=== PATIENT | male | born 1945 | race Caucasian/White ===

== ENCOUNTER → 2016-09-13 | Outpatient (CLI) | payer OTHER, BC ==
[~2016-09-13] MED LIST: ALEVE220 MG PO; ASA5UEC PO; ATORVASTATIN CA40 MG PO; CENTRUM SILVER1 EAC4 PO; CYMBALTA60 MG PO; NITROGLYCERIN0.4 MG SUBLING; TOPROL XL25 MG PO; VITAMINC500 PO; XANAX 0.25 MG0.25 MG PO
[2016-09-13 14:46] LABS: ABSOLUTE NEUTROPHILS 5.6 thou/uL (1.4-8.2); EOSINOPHILS 2.1 % (0.0-3.0); HEMATOCRIT 46.4 % (42.0-52.0); HEMOGLOBIN 16.2 gm/dL (14.0-18.0); LYMPHOCYTES 19.1 % (24.0-44.0); MCH 31.6 pg (26.0-34.0); MCV 90.3 fL (80.0-100.0); MONOCYTES 7.8 % (1.0-8.0); PLATELET COUNT 186 thou/uL (150-400); RBC 5.14 mil/uL (4.50-6.00); RDW 13.7 % (10.5-14.5)
[2016-09-13 14:51] LABS: MANUAL DIFF NO; POTASSIUM 4.2 mmol/L (3.5-5.1)
[2016-09-13 14:52] LABS: CALCIUM 9.4 mg/dL (8.5-10.1); CREATININE 0.9 mg/dL (0.6-1.3)
[2016-09-13 15:05] LABS: TOTAL BILIRUBIN 0.6 mg/dL (<0.1-1.0)
[2016-09-13 15:06] LABS: ALBUMIN 3.8 g/dL (3.4-5.0); TOTAL PROTEIN 7.3 g/dL (6.4-8.2)
[2016-09-13 15:25] LABS: TSH 1.45 uIU/mL (0.358-3.740)
== END ==
LOC: MRI 09:50
PROVIDERS: Psychiatry & Neurology Neuromuscular Medicine
DX: R51 Headache (principal); J34.1 Cyst and mucocele of nose and nasal sinus; E04.1 Nontoxic single thyroid nodule

== ENCOUNTER → 2017-02-28 | Outpatient (CLI) | payer OTHER, BC | LOC: CAT 08:15 | DX: J43.9 Emphysema, unspecified (principal); R91.1 Solitary pulmonary nodule ==

== ENCOUNTER → 2018-04-24 | Outpatient (CLI) | payer OTHER, BC | LOC: CAT 10:29 | DX: J43.2 Centrilobular emphysema (principal); J98.11 Atelectasis; I70.0 Atherosclerosis of aorta; I25.10 Atherosclerotic heart disease of native coronary artery without angina pectoris; K76.0 Fatty (change of) liver, not elsewhere classified; R91.8 Other nonspecific abnormal finding of lung field ==

== ENCOUNTER → 2019-07-29 | Outpatient (CLI) | payer OTHER | LOC: SJCVC 10:48 | DX: R94.31 Abnormal electrocardiogram [ECG] [EKG] (principal); I45.10 Unspecified right bundle-branch block; I25.10 Atherosclerotic heart disease of native coronary artery without angina pectoris; E78.00 Pure hypercholesterolemia, unspecified; I10 Essential (primary) hypertension; I65.23 Occlusion and stenosis of bilateral carotid arteries; Z95.5 Presence of coronary angioplasty implant and graft; Z79.899 Other long term (current) drug therapy; Z87.891 Personal history of nicotine dependence ==

== ENCOUNTER → 2020-05-19 | Outpatient (CLI) | payer OTHER | LOC: RAD 12:15 | PROVIDERS: ATTEND Pediatrics | DX: J44.9 Chronic obstructive pulmonary disease, unspecified (principal); R91.8 Other nonspecific abnormal finding of lung field ==

== ENCOUNTER → 2020-05-31 | Outpatient (CLI) | payer OTHER | LOC: CAT 10:29 | PROVIDERS: ATTEND Pediatrics | DX: Z12.2 Encounter for screening for malignant neoplasm of respiratory organs (principal); M25.78 Osteophyte, vertebrae; I70.0 Atherosclerosis of aorta; Z87.891 Personal history of nicotine dependence; J98.4 Other disorders of lung ==

== ENCOUNTER → 2020-06-09 | Outpatient (CLI) | payer OTHER | LOC: PET 11:01 | PROVIDERS: ATTEND Pediatrics | DX: R91.1 Solitary pulmonary nodule (principal); J98.4 Other disorders of lung ==

== ENCOUNTER → 2020-06-29 | Outpatient (CLI) | payer OTHER | LOC: SJCVC 12:18 | PROVIDERS: ATTEND Internal Medicine Cardiovascular Disease | DX: I45.10 Unspecified right bundle-branch block (principal); R94.31 Abnormal electrocardiogram [ECG] [EKG]; I11.9 Hypertensive heart disease without heart failure; I48.0 Paroxysmal atrial fibrillation; I25.10 Atherosclerotic heart disease of native coronary artery without angina pectoris; E78.5 Hyperlipidemia, unspecified; I77.9 Disorder of arteries and arterioles, unspecified; Z79.891 Long term (current) use of opiate analgesic; Z79.899 Other long term (current) drug therapy; Z87.891 Personal history of nicotine dependence ==

== ENCOUNTER → 2020-08-03 | Outpatient (CLI) | payer OTHER | LOC: SJCVCIMAG 06:41 | PROVIDERS: ATTEND Internal Medicine Cardiovascular Disease | DX: I35.8 Other nonrheumatic aortic valve disorders (principal); R00.0 Tachycardia, unspecified; R94.31 Abnormal electrocardiogram [ECG] [EKG]; I44.2 Atrioventricular block, complete; I48.91 Unspecified atrial fibrillation; I25.10 Atherosclerotic heart disease of native coronary artery without angina pectoris; I10 Essential (primary) hypertension; E78.00 Pure hypercholesterolemia, unspecified; I77.9 Disorder of arteries and arterioles, unspecified; J44.9 Chronic obstructive pulmonary disease, unspecified; E78.5 Hyperlipidemia, unspecified; G47.33 Obstructive sleep apnea (adult) (pediatric); Z95.5 Presence of coronary angioplasty implant and graft; Z79.82 Long term (current) use of aspirin; Z79.899 Other long term (current) drug therapy; Z87.891 Personal history of nicotine dependence; Z82.49 Family history of ischemic heart disease and other diseases of the circulatory system ==

== ENCOUNTER → 2020-11-18 | Outpatient (CLI) | payer OTHER | LOC: CAT 09:44 | PROVIDERS: ATTEND Pediatrics | DX: R91.1 Solitary pulmonary nodule (principal); K76.0 Fatty (change of) liver, not elsewhere classified ==

== ENCOUNTER → 2021-02-10 | Outpatient (CLI) | payer OTHER | LOC: SJCVC 13:59 | PROVIDERS: ATTEND Internal Medicine Cardiovascular Disease | DX: R94.31 Abnormal electrocardiogram [ECG] [EKG] (principal); I45.2 Bifascicular block; I48.0 Paroxysmal atrial fibrillation; I25.10 Atherosclerotic heart disease of native coronary artery without angina pectoris; I10 Essential (primary) hypertension; E78.5 Hyperlipidemia, unspecified; I77.9 Disorder of arteries and arterioles, unspecified; R07.89 Other chest pain; R06.00 Dyspnea, unspecified; F41.9 Anxiety disorder, unspecified; J44.9 Chronic obstructive pulmonary disease, unspecified; E78.00 Pure hypercholesterolemia, unspecified; G47.33 Obstructive sleep apnea (adult) (pediatric); Z79.82 Long term (current) use of aspirin; Z79.899 Other long term (current) drug therapy; Z72.89 Other problems related to lifestyle; Z87.891 Personal history of nicotine dependence ==

== ENCOUNTER → 2021-03-10 | Outpatient (CLI) | payer OTHER | LOC: SJCVCIMAG 08:07 | PROVIDERS: ATTEND Internal Medicine Cardiovascular Disease | DX: I70.203 Unspecified atherosclerosis of native arteries of extremities, bilateral legs (principal); I10 Essential (primary) hypertension; I48.0 Paroxysmal atrial fibrillation; I25.10 Atherosclerotic heart disease of native coronary artery without angina pectoris; E78.5 Hyperlipidemia, unspecified; J44.9 Chronic obstructive pulmonary disease, unspecified; F41.9 Anxiety disorder, unspecified; F32.9 Major depressive disorder, single episode, unspecified; E78.00 Pure hypercholesterolemia, unspecified; G47.33 Obstructive sleep apnea (adult) (pediatric); Z82.49 Family history of ischemic heart disease and other diseases of the circulatory system; Z79.82 Long term (current) use of aspirin; Z79.899 Other long term (current) drug therapy; Z87.891 Personal history of nicotine dependence ==

== ENCOUNTER → 2021-03-16 | Outpatient (CLI) | payer OTHER ==
[~2021-03-16] MED LIST changes: +BENICAR HCT 401 EACH PO; +FLOMAX0.4 MG PO; +XARELTO20 MG PO
== END ==
LOC: SJCVC 09:50
PROVIDERS: ATTEND Nuclear Medicine Nuclear Cardiology
DX: I73.9 Peripheral vascular disease, unspecified (principal); I25.10 Atherosclerotic heart disease of native coronary artery without angina pectoris; I77.9 Disorder of arteries and arterioles, unspecified; I48.91 Unspecified atrial fibrillation; I10 Essential (primary) hypertension; J44.9 Chronic obstructive pulmonary disease, unspecified; E78.5 Hyperlipidemia, unspecified; E78.00 Pure hypercholesterolemia, unspecified; F32.9 Major depressive disorder, single episode, unspecified; Z87.891 Personal history of nicotine dependence; Z72.89 Other problems related to lifestyle; Z79.82 Long term (current) use of aspirin; Z79.899 Other long term (current) drug therapy; Z95.5 Presence of coronary angioplasty implant and graft

== ENCOUNTER → 2021-03-28 | Outpatient (CLI) | payer OTHER ==
[~2021-03-28] VITALS: Ht 172.7 cm; Wt 111.1 kg
[2021-03-28 09:14] VITALS: BP 130/63
[2021-03-28 09:21] LABS: HEMATOCRIT 30.3 % (42.0-52.0); HEMOGLOBIN 9.9 gm/dL (14.0-18.0); MCH 25.9 pg (26.0-34.0); MCHC 32.6 g/dL (28.0-37.0); MCV 79.4 fL (80.0-100.0); RBC 3.82 mil/uL (4.50-6.00); WBC 5.4 thou/uL (4.0-11.0)
[2021-03-28 09:53] LABS: CALCIUM 8.8 mg/dL (8.5-10.1); POTASSIUM 4.5 mmol/L (3.5-5.1)
== END | disposition home or self-care (01) ==
LOC: CATH 06:58
PROVIDERS: ATTEND Nuclear Medicine Nuclear Cardiology
DX: I70.213 Atherosclerosis of native arteries of extremities with intermittent claudication, bilateral legs (principal); I70.1 Atherosclerosis of renal artery; M79.604 Pain in right leg; M79.605 Pain in left leg; I10 Essential (primary) hypertension; I25.10 Atherosclerotic heart disease of native coronary artery without angina pectoris; I48.91 Unspecified atrial fibrillation; J44.9 Chronic obstructive pulmonary disease, unspecified; I25.2 Old myocardial infarction; F32.9 Major depressive disorder, single episode, unspecified; F41.9 Anxiety disorder, unspecified; Z98.890 Other specified postprocedural states; Z79.899 Other long term (current) drug therapy; Z79.01 Long term (current) use of anticoagulants; Z87.891 Personal history of nicotine dependence; Z79.82 Long term (current) use of aspirin

== ENCOUNTER → 2021-04-06 | Outpatient (CLI) | payer OTHER | LOC: SJCVCIMAG 10:37 | PROVIDERS: ATTEND Internal Medicine Cardiovascular Disease | DX: I45.10 Unspecified right bundle-branch block (principal); I25.10 Atherosclerotic heart disease of native coronary artery without angina pectoris; I48.91 Unspecified atrial fibrillation; E78.5 Hyperlipidemia, unspecified; I73.9 Peripheral vascular disease, unspecified; I77.9 Disorder of arteries and arterioles, unspecified; J44.9 Chronic obstructive pulmonary disease, unspecified; F41.9 Anxiety disorder, unspecified; F32.9 Major depressive disorder, single episode, unspecified; E78.00 Pure hypercholesterolemia, unspecified; G47.33 Obstructive sleep apnea (adult) (pediatric); Z82.49 Family history of ischemic heart disease and other diseases of the circulatory system; Z79.82 Long term (current) use of aspirin; Z79.899 Other long term (current) drug therapy; Z72.89 Other problems related to lifestyle; Z87.891 Personal history of nicotine dependence ==

== ENCOUNTER → 2021-04-08 | Outpatient (CLI) | payer OTHER ==
[~2021-04-08] MED LIST changes: +VENTOLIN HFA 1818 GM INH; +ZANAFLEX4 M1 PO
== END ==
LOC: RAD 10:56
PROVIDERS: ATTEND Nurse Practitioner
DX: M47.26 Other spondylosis with radiculopathy, lumbar region (principal); M43.16 Spondylolisthesis, lumbar region; M47.817 Spondylosis without myelopathy or radiculopathy, lumbosacral region

== ENCOUNTER → 2021-04-15 | Outpatient (CLI) | payer OTHER ==
[~2021-04-15] MED LIST changes: -VENTOLIN HFA 1818 GM INH; -ZANAFLEX4 M1 PO
== END ==
LOC: MRI 09:36
PROVIDERS: ATTEND Nurse Practitioner
DX: M47.26 Other spondylosis with radiculopathy, lumbar region (principal); M51.16 Intervertebral disc disorders with radiculopathy, lumbar region; M43.16 Spondylolisthesis, lumbar region; M48.061 Spinal stenosis, lumbar region without neurogenic claudication; M47.817 Spondylosis without myelopathy or radiculopathy, lumbosacral region; M48.07 Spinal stenosis, lumbosacral region

== ENCOUNTER → 2021-04-20 | Outpatient (CLI) | payer OTHER ==
[~2021-04-20] VITALS: Ht 177.8 cm; Wt 108.9 kg
[~2021-04-20] MED LIST changes: +VENTOLIN HFA 1818 GM INH; +ZANAFLEX4 M1 PO
--- NOTE | ~2021-04-20 | HPC ---
[address] [address] PAIN MANAGEMENT CONSULTATION Name: RAN GLOVER Pablo Room #: REG QUAN Shira#: [id number] Admission: 04/20/21 Attend Phys: Fahad Salazar DO Discharge: Date of : 49 Report #: [id number] THIS REPORT FOR: cc: Dalia Oneil DNP, Mary E. DNP Johnson, James E. DO ~ cc: YUMIKO Encinas DATE OF SERVICE: 04/20/2021 CHIEF COMPLAINT: Low back pain, bilateral lower extremity pain with paresthesias. HISTORY OF PRESENT ILLNESS: As you know, the patient is a very pleasant 76-year-old male reporting a longstanding history of axial back pain, lower extremity pain with paresthesias. The patient was seen by pain management in 2013, undergoing lumbar epidural injections under fluoroscopic guidance to address lumbar radicular symptoms. He states his pain was well controlled until 08/2020 where his pain intensified quite quickly. He is now indicating pain level up to 8/10. He has trialed chiropractic manipulation without benefit. He has utilized [id number] medications, rest, relaxation without significant pain improvement. He continued to experience symptoms, great enough that he discussed his case with his primary care team, who sent the patient for MRI imaging, the findings were obtained, and the patient was referred on to our clinic to discuss interventional treatment options and surgical options. The patient reports today pain is continuous. He describes the pain as more of a shooting, cramping, aching, numbness and tingling. He places current pain score at 8/10, daily average at 8/10. Worst pain has been as 10/10. The patient states that virtually every activity exacerbates symptoms, the only thing that has improved pain to date has been medications. He has been referred to our service to discuss interventional treatments and surgical options to address MRI findings of lumbar radiculopathy. PAST MEDICAL HISTORY: Hepatitis C, anxiety disorder, dyslipidemia, hypertension, COPD, obstructive sleep apnea, atrial fibrillation, coronary artery disease, peripheral vascular disease, carpal tunnel syndrome, chronic edema, benign prostatic hypertrophy of the prostate. SOCIAL HISTORY: The patient is a reformed smoker, smoking 2 packs a day for 50 years or a total of 100 pack years. He admits to 1-2 alcohol beverages per day. He is retired, retired years ago. He is not receiving workmen's compensation nor is he trying to obtain disability benefits, not in litigation in regards to pain. He is unaccompanied at today's visit. REVIEW OF SYSTEMS: Positive for low back pain, bilateral lower extremity pain with paresthesias, shortness of breath with walking, lying flat, asthma, [address] [address] PAIN MANAGEMENT CONSULTATION Name: RAN GLOVER Room #: REG CLRemberto Silva#: [id number] Admission: 04/20/21 Attend Phys: Fahad Salazar DO Discharge: Date of : 49 Report #: [id number] wheezing, COPD, and hepatitis. All other review of systems negative per 12-point review of systems other than those listed in history of present illness. Pain impact score 28 of 70, moderate interference of daily activities secondary to pain. ALLERGIES: No known drug allergies. CURRENT MEDICATIONS: Duloxetine 60 mg once a day, alprazolam 0.25 mg once a day, atorvastatin 40 mg once a day, nitroglycerin 0.4 mg p.r.n., multivitamin 1 tab per day, ascorbic acid 500 mg 2 tabs once a day, olmesartan/hydrochlorothiazide 40/12.5 mg once a day, Xarelto 20 mg once a day, tamsulosin 0.4 mg once a day, albuterol 2 puffs q. 4 hours p.r.n., tizanidine 4 mg p.r.n. IMAGING: MRI lumbar spine obtained 04/15/2021 shows severe L4-L5 central canal stenosis with grade 1 anterolisthesis, severe facet arthropathy, severe ligamentum flavum hypertrophy and severe lateral recess stenosis with a deformation of the L5 nerve roots bilaterally. PQRS: The patient has known arthritic changes of lumbar spine, bilateral hips and knees. No rheumatoid arthritis. He is placing current pain score at 8/10. He is not a fall risk, but has had a fall in last 3 months, tripping over objects at home. These have been corrected. He is on Xarelto as a blood thinner. He is treated for hypertension. He is not on any opioids. He has a moderate to severe opioid addiction potential based on assessment tool. Pain impact is 28 of 70, moderate interference of daily activities secondary to pain. PHYSICAL EXAMINATION: VITAL SIGNS: Blood pressure 140/75, pulse 69, respiratory rate 20, unlabored. The patient is 97% on room air. Height 5 feet 10 inches tall, weight 240 pounds, BMI calculated 34.4. GENERAL: Well-developed, well-nourished, well-hydrated 76-year-old male, appears older than stated age, placing current pain score at 8/10. HEENT: Normocephalic, atraumatic. Pupils equal, round, and responsive to light. Extraocular muscles are intact. Speech fluent. The patient deemed a good historian. He is wearing a mask in compliance with COVID-19 regulations. LUNGS: Decreased breath sounds bilaterally, prolonged expiratory phase. No wheezing, rhonchi, or rales. CARDIOVASCULAR: Regular. No murmurs. ABDOMEN: Soft, nontender. EXTREMITIES: Show no clubbing, no cyanosis, no edema. MUSCULOSKELETAL: Lower extremity strength is symmetrical 5/5, intact to light touch from L1 through S2 dermatomes. Seated straight leg raising negative. Supine straight leg raising positive. Fabere's test is negative. [facility] [address] [place] [address] PAIN MANAGEMENT CONSULTATION Name: BELENRAN R Room #: [facility]#: [id number] Admission: 04/20/21 Attend Phys: Fahad Salazar DO Discharge: Date of : 49 Report #: [id number] Gaenslen's positive for axial low back pain. Ankle clonus negative. Gait is normal. Stance is normal. The patient does have difficulty with toe walk and heel walk due to balance. ASSESSMENT: 1. Symptomatic lumbar radiculopathy. 2. Severe central canal stenosis of lumbar spine. 3. 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 4. Severe facet arthropathy of lumbar spine. 5. Displacement of lumbar intervertebral disk with radiculopathy. 6. Lumbosacral spondylosis with radiculopathy. 7. Lumbar degeneration. PLAN: 1. Based on today's physical exam and history the patient has provided, the description the patient uses in regards to pain as well as location of symptoms, it would appear that the patient is suffering from lumbar radiculopathy. Findings of the MRI shows severe central canal stenosis and lateral recess stenosis with deformation of the L5 nerve roots bilaterally, which is consistent with the patient's symptoms. We reviewed the patient's MRI today. We have correlated the findings of the physical exam to his current MRI and then discussed the treatment options. Following was discussed with the patient today: 1. We discussed physical therapy, stretching exercises, and core strengthening as a treatment approach. We discussed medication management, adding a neuropathic medication to his list of medications and increasing his Cymbalta. We discussed lumbar epidural injection under fluoroscopic guidance for which the patient was referred to our clinic. We also discussed surgical options to address his central canal stenosis. After reviewing risks and benefits of all proposed treatment options, the patient chose to move forward with a lumbar epidural injection under fluoroscopic guidance. 2. The patient was advised due to third alliance party payer restrictions, authorization have to be obtained before the patient could undergo a lumbar epidural injection. We will begin those processes immediately. I am hopeful to have those authorizations completed by the next couple of days. Once we have this authorization, we will contact the patient to come off his Xarelto. 3. The patient will need to come off his Xarelto for 3 days prior to the requested epidural injection. He must be off this medication to safely perform neural axial blockade based on ROSITA guidelines. If necessary, needs to obtain authorization to come off the Xarelto. The patient has been off the Xarelto in the past for carpal tunnel treatment without issues. If clearance is necessary, the patient will need to contact the prescribing physician. Otherwise, we will have him come off the medication in preparation for the epidural injection requested. 4. I recommend the patient increase his duloxetine from 60 mg once a day to 60 mg twice a day. This potentially will help with his neuropathic symptoms. [facility] [address] [place] [address] PAIN MANAGEMENT CONSULTATION Name: RAN GLOVER Room #: REG CLRemberto Silva#: [id number] Admission: 04/20/21 Attend Phys: Fahad Salazar DO Discharge: Date of : 49 Report #: [id number] Duloxetine has a much greater norepinephrine reuptake inhibition at the doses of 90 and 120 mg. We will double his dose today and watch for any side effects. 5. We will see the patient back in followup visit once he has discontinued the Xarelto for 3 days and has received the approval to undergo the procedure. 6. We wish to thank nurse practitioner, Dalia Oneil, for the opportunity to see this patient in consultation. We will keep you apprised of response to treatment as we address severe lumbar central canal stenosis and lateral recess stenosis with subsequent development of lumbar radiculopathy. Again, we wish to thank you for the opportunity to see the patient in consultation. By: [id number] Fahad Salazar DO /nt
[2021-04-20 10:50] VITALS: BP 140/75
== END ==
LOC: PAIN 07:16
PROVIDERS: ATTEND Anesthesiology Pain Medicine
DX: M47.816 Spondylosis without myelopathy or radiculopathy, lumbar region (principal); M51.16 Intervertebral disc disorders with radiculopathy, lumbar region; M48.061 Spinal stenosis, lumbar region without neurogenic claudication; M47.817 Spondylosis without myelopathy or radiculopathy, lumbosacral region; M79.661 Pain in right lower leg; M79.662 Pain in left lower leg

== ENCOUNTER → 2021-04-26 | Outpatient (CLI) | payer OTHER ==
[~2021-04-26] VITALS: Ht 177.8 cm; Wt 113.9 kg
[2021-04-26 10:10] VITALS: BP 136/81
--- NOTE | 2021-04-26 10:19 | NUR ---
Pain Clinic Assessment: 1. History of Osteoarthritis: BACK History of Rheumatoid Arthritis: Not Applicable 2. Height: 5 ft. 10 in. 177.8 cm. Weight: 251.0 lb. oz. 113.853 kg. Patient's BMI: 36.0 3. Vital Signs: BP: 136/81 Pulse: 70 Resp: 18 Temp: 02 Sat: 97 ECG Mon: 4. Pain Intensity: 8 5. Fall Risk: Dizziness: N Needs help standing or walking: N Fallen in the last 3 months: N Fall risk comments: 6. Patient on Blood Thinner: XERALTO 7. History of Hypertension: Y 8. Opioid Therapy greater than 6 weeks: N Opiate Contract Signed: 9. Risk Assessment Tool Provided: MOD 10. Functional Assessment Tool: 11. Recreational Drug Use: Never Drug Type: Tobacco Use: Former Smoker Tobacco Type: Amount or Packs/day: How Many Years: Alcohol Use: Yes Frequency: Special Occasions Quant: 1
--- NOTE | 2021-04-27 08:39 | HPC ---
[address] [address] PAIN MANAGEMENT CONSULTATION Name: RAN GLOVER Room #: REG QUAN Shira#: [id number] Admission: 04/26/21 Attend Phys: Fahad Salazar DO Discharge: Date of : 49 Report #: [id number] THIS REPORT FOR: cc: Dalia Oneil DNP, Mary E. DNP Johnson, James E. DO ~ cc: YUMIKO Encinas DATE OF SERVICE: 04/26/2021 REFERRING PHYSICIAN: Nurse practitioner, Dalia Oneil CHIEF COMPLAINT: Low back pain, bilateral lower extremity pain with paresthesias. HISTORY OF PRESENT ILLNESS: As you know, the patient is a very pleasant 76-year-old male with longstanding history of axial back pain, lower extremity pain with paresthesias. He has been seen by pain management in the past, undergoing epidural injections with benefit. He was referred to our clinic on 04/20/2021 for low back pain, bilateral lower extremity pain. It did not improve with rest, relaxation and [id number] medications. He underwent MRI of lumbar spine, which showed changes that prompted a referral to our clinic. We saw the patient in consultation on 04/20/2021 where he was diagnosed with lumbar radiculopathy secondary to severe central canal and lateral recess stenosis. He wish to establish today's appointment to undergo lumbar epidural injection as third republic[employer] payer restrictions require that authorization be obtained. He has received that authorization, returning today in followup visit to undergo the first in a series of epidural injections. ALLERGIES: No known drug allergies. CURRENT MEDICATIONS: See chart. SOCIAL HISTORY: The patient denies current tobacco use. He is a reformed smoker with [id number] of smoking history. He admits to 2 alcohol beverages per day. He is accompanied by a family member present in room today. IMAGING: No new imaging available. PQRS: The patient has known arthritic changes of lumbar spine, bilateral hips and knees. No rheumatoid arthritis. He is placing pain intensity to 8/10. He is not a fall risk, has not had a fall in last 3 months. He is on blood thinner in the form of Xarelto, but discontinued the medication 3 days ago in preparation for the procedure. He is treated for hypertension. He is not on opioids, but does have a moderate to severe opioid addiction potential based on assessment tool. Pain impact is 28/70, moderate interference with daily activities secondary to pain. [address] [address] PAIN MANAGEMENT CONSULTATION Name: GLOVERRAN R [facility] [id number] Admission: 04/26/21 Attend Phys: Fahad Salazar DO Discharge: Date of : 49 Report #: [id number] PHYSICAL EXAMINATION: VITAL SIGNS: Blood pressure 136/81, pulse 70, respiratory rate 18 and unlabored. The patient is 97% on room air. Height 5 feet 10 inches tall, weight 251 pounds, BMI calculated 36.0. GENERAL: Well-developed, well-nourished, well-hydrated 76-year-old male. He is placing current pain score at 8/10. HEENT: Normocephalic, atraumatic. Pupils equal, round and responsive. EXTREMITIES: Show no clubbing, no cyanosis, no edema. MUSCULOSKELETAL: Lower extremity strength remains symmetrical again today. Muscle bulk and tone is equal and symmetrical. Seated straight leg raising negative. Supine straight leg raising is positive. Fabere's test negative. Modified Gaenslen's positive for axial low back pain. ASSESSMENT: 1. Symptomatic lumbar radiculopathy. 2. Severe central canal stenosis of lumbar spine. 3. 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 4. Severe facet arthropathy of lumbar spine. 5. Displacement of lumbar intervertebral disk with radiculopathy. 6. Lumbosacral spondylosis with radiculopathy. 7. Spondylolisthesis of L4 on L5. 8. Lumbar degeneration. PLAN: 1. The patient returns today in followup visit, having received authorization to undergo the first in a series of lumbar epidural injections. The patient has been advised of the risks and the benefits of a lumbar epidural injection. These risks include but are not necessarily limited to bleeding, bruising, infection, worsening pain, no relief of pain, also risk of temporary or permanent muscle weakness, temporary or permanent nerve damage, possible paralysis, post-dural puncture headache and . The patient states he understood and wished to proceed. 2. No medication changes made at today's visit. The patient will continue current medical therapy as prior prescribed. 3. The patient will restart his Xarelto today. We recommend no earlier than 2:00 in the afternoon and continue his Xarelto as directed. 4. We will see the patient back in followup visit for the next in the series of lumbar epidural injections. We have made the patient a tentative appointment for 30 days from today. PROCEDURE NOTE: DESCRIPTION OF PROCEDURE: L5-S1 interlaminar epidural steroid injection under fluoroscopic guidance. [address] [address] PAIN MANAGEMENT CONSULTATION Name: RAN GLOVER [facility] [id number] Admission: 04/26/21 Attend Phys: Fahad TenaBala Salazar DO Discharge: Date of : 47 Report #: [id number] This is the first procedure of the first series that the patient is undergoing. After obtaining written consent, the patient was taken back to the fluoroscopy suite, placed in a prone position with pillow under the abdomen to decrease lumbar lordosis. The skin overlying the lumbosacral area was then prepped and draped in aseptic fashion. The L5-S1 vertebral interspace was then identified by AP fluoroscopy. The skin and subcutaneous tissue overlying the target site of injection was anesthetized with 3 mL 1% lidocaine. A 20-gauge 3-1/2 inch Tuohy needle was then advanced under fluoroscopic guidance towards the epidural space using a parasagittal approach. The epidural space was identified using loss of resistance to air technique. After negative aspiration for heme or cerebrospinal fluid, a total of 1 mL of Omnipaque was injected. A lumbar epidurogram was confirmed using both AP and lateral fluoroscopy. After negative aspiration for heme or cerebrospinal fluid, 5 mL of a solution containing 2 mL 40 mg per mL 80 mg total triamcinolone along with 3 mL of lidocaine 1% was injected in increments. Contrast spread was noted in posterior epidural space. The needle was then retracted approximately half way and needle tract flushed with 1 mL of 1% lidocaine. Needle was then removed. There were no apparent sensory or motor deficits in the lower extremity following the procedure. A sterile bandage was placed over the injection site. The heart rate, pulse, oximetry and blood pressure were continuously monitored after the procedure. There were no apparent complications. The patient tolerated the procedure well and was carefully escorted to the recovery room in stable condition. There were no apparent complications. After meeting discharge criteria, the patient was then discharged home. <ELECTRONICALLY SIGNED> By: Fahad Salazar DO 04/27/21 [id number] Fahad Salazar DO /nt
== END | disposition home or self-care (01) ==
LOC: PAIN 07:21
PROVIDERS: ATTEND Anesthesiology Pain Medicine
DX: M51.16 Intervertebral disc disorders with radiculopathy, lumbar region (principal); M48.061 Spinal stenosis, lumbar region without neurogenic claudication; M47.27 Other spondylosis with radiculopathy, lumbosacral region; M47.26 Other spondylosis with radiculopathy, lumbar region; M43.16 Spondylolisthesis, lumbar region; G89.29 Other chronic pain; I10 Essential (primary) hypertension; M19.90 Unspecified osteoarthritis, unspecified site; Z98.890 Other specified postprocedural states; Z79.899 Other long term (current) drug therapy

== ENCOUNTER → 2021-05-24 | Outpatient (CLI) | payer OTHER ==
[~2021-05-24] VITALS: Ht 177.8 cm; Wt 113.3 kg
[2021-05-24 10:14] VITALS: BP 144/85
--- NOTE | 2021-05-24 10:20 | NUR ---
Pain Clinic Assessment: 1. History of Osteoarthritis: BACK History of Rheumatoid Arthritis: Not Applicable 2. Height: 5 ft. 10 in. 177.8 cm. Weight: 249.8 lb. oz. 113.309 kg. Patient's BMI: 35.8 3. Vital Signs: BP: 144/85 Pulse: 68 Resp: 16 Temp: 02 Sat: 98 ECG Mon: 4. Pain Intensity: 7 5. Fall Risk: Dizziness: N Needs help standing or walking: N Fallen in the last 3 months: N Fall risk comments: 6. Patient on Blood Thinner: XERALTO 7. History of Hypertension: Y 8. Opioid Therapy greater than 6 weeks: N Opiate Contract Signed: 9. Risk Assessment Tool Provided: MOD 10. Functional Assessment Tool: 11. Recreational Drug Use: Never Drug Type: Tobacco Use: Former Smoker Tobacco Type: Amount or Packs/day: How Many Years: Alcohol Use: Yes Frequency: Special Occasions Quant: 4-5
--- NOTE | 2021-05-25 08:11 | HPC ---
[facility] [place] [address] PAIN MANAGEMENT CONSULTATION Name: RAN GLOVER Room #: REG QUAN Gavino.#: [id number] Admission: 05/24/21 Attend Phys: Fahad Salazar DO Discharge: Date of : 49 Report #: [id number] THIS REPORT FOR: cc: Dalia Oneil DNP, Mary E. DNP Johnson, James E. DO ~ cc: YUMIKO Encinas DATE OF SERVICE: 05/24/2021 REFERRING PHYSICIAN: Dalia Oneil NP CHIEF COMPLAINT: Low back pain, bilateral lower extremity pain with paresthesias. HISTORY OF PRESENT ILLNESS: As you know, the patient is a very pleasant 76-year-old male with longstanding history of axial back pain and lower extremity pain with paresthesias. He was seen in pain management in the past, underwent epidural injections with benefit. He was referred to our clinic on 04/20/2021 for low back pain, bilateral lower extremity symptoms. Symptoms did not improve with conservative treatment options. He underwent a lumbar epidural injection under fluoroscopic guidance on 04/26/2021 with excellent benefit. He reports with that injection, he received 90% improvement in overall pain lasting until just recently. He has had a slow and progressive return of symptoms for which he places pain, no greater than 7/10 with activity. He is very pleased with response to the first injection. Returning today to undergo second in series in hopes of further improvement. The patient denies new injury, new trauma or any changes in medication management. ALLERGIES: No known drug allergies. CURRENT MEDICATIONS: See chart. SOCIAL HISTORY: The patient denies current tobacco use. He is a reformed smoker with [id number]-[id number] history of smoking. He admits to 2 alcohol beverages per day. He is accompanied by a family member present in room today. IMAGING: No new imaging available. PQRS: The patient has known arthritic changes of lumbar spine, bilateral hips and knees. No rheumatoid arthritis. He is placing pain intensity today at 7/10. He is not a fall risk, has not had a fall in last 3 months. He is on blood thinners in the form of Xarelto, but discontinued the medication 3 days prior to today's procedure to undergo the injection. He is treated for hypertension. He is on no chronic opioids, has a moderate addiction potential to opioid medications based on our assessment tool. Pain impact is 28 of 70, moderate interference of daily activities secondary to pain. [address] [address] PAIN MANAGEMENT CONSULTATION Name: RAN GLOVER Pablo Room #: REG [facility]#: [id number] Admission: 05/24/21 Attend Phys: Fahad Salazar DO Discharge: Date of : 49 Report #: [id number] PHYSICAL EXAMINATION: VITAL SIGNS: Blood pressure 144/85, pulse 68, respiratory rate 16 and unlabored. The patient 98% on room air. Height 5 feet 10 inches tall, weight 249.8 pounds, BMI calculated 35.8. GENERAL: Well-developed, well-nourished, well-hydrated 76-year-old male appearing stated age, pain is rated today 7/10. HEENT: Normocephalic, atraumatic. Speech is fluent. EXTREMITIES: Show no clubbing, no cyanosis and no edema. MUSCULOSKELETAL: Lower extremity strength equal and symmetrical 5/5, intact to light touch from L1 through S2 dermatomes. Seated straight leg raising negative. Supine straight leg raising is positive. Fabere's test is negative. Modified Gaenslen's positive for some axial low back pain. Muscle bulk and tone symmetrical in lower extremities. Gait appear antalgic, favoring right lower extremity. ASSESSMENT: 1. Symptomatic lumbar radiculopathy. 2. Severe central canal stenosis of lumbar spine. 3. 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 4. Severe facet arthropathy of lumbar spine. 5. Displacement of lumbar intervertebral disk with radiculopathy. 6. Lumbosacral spondylosis with radiculopathy. 7. Spondylolisthesis of L4 and L5. 8. Lumbar degeneration. PLAN: 1. The patient returns today in followup visit to undergo lumbar epidural injection under fluoroscopic guidance. He reports an excellent benefit with previous epidural injection 90% improvement in overall pain lasting for nearly 4 weeks. Unfortunately, his symptoms have reoccurred. No inciting injury or trauma. He has been advised risks and benefits of this procedure, states understood and wished to proceed. 2. No medication changes made at today's visit. The patient will continue current medical therapy as prior prescribed. 3. We plan to see the patient back in followup visit on an as needed basis for the third in the series of lumbar epidural injections to address lumbar radicular symptoms. PROCEDURE NOTE DESCRIPTION OF PROCEDURE: L5-S1 interlaminar epidural steroid injection under fluoroscopic guidance. Placed in a prone position with pillow under the abdomen to decrease This is the 2nd procedure of the 1st series that the patient is undergoing. [address] [address] PAIN MANAGEMENT CONSULTATION Name: RAN GLOVER Room #: REG CLRemberto Traylor#: [id number] Admission: 05/24/21 Attend Phys: Fahad Salazar DO Discharge: Date of : 49 Report #: [id number] After obtaining written consent, the patient was taken back to the fluoroscopy suite, placed in a prone position with pillow under the abdomen to decrease lumbar lordosis. The skin overlying the lumbosacral area was then prepped and draped in aseptic fashion. The L5-S1 vertebral interspace was then identified by AP fluoroscopy. The skin and subcutaneous tissue overlying the target site of injection was anesthetized with 3 mL 1% lidocaine. A 20-gauge half-inch Tuohy needle was then advanced under fluoroscopic guidance towards the epidural space using a paramedian approach. The epidural space was identified using loss of resistance to air technique. After negative aspiration for heme or cerebrospinal fluid, a total of 1 mL of Omnipaque was injected. A lumbar epidurogram was confirmed using both AP and lateral fluoroscopy. After negative aspiration for heme or cerebrospinal fluid, 5 mL of a solution containing 2 mL 40 mg per mL 80 mg total triamcinolone along with 3 mL of lidocaine 1% was injected in increments. Contrast spread was noted in posterior epidural space . The needle was then retracted approximately half way and needle tract flushed with 1 mL of 1% lidocaine. Needle was then removed. There were no apparent sensory or motor deficits in the lower extremity following the procedure. A sterile bandage was placed over the injection site. The heart rate, pulse, oximetry and blood pressure were continuously monitored after the procedure. There were no apparent complications. The patient tolerated the procedure well and was carefully escorted to the recovery room in stable condition. There were no apparent complications. After meeting discharge criteria, the patient was then discharged home. <ELECTRONICALLY SIGNED> By: Fahad Salazar DO 05/25/21 0811 [id number] Fahad Salazar DO /nt
== END | disposition home or self-care (01) ==
LOC: PAIN 06:58
PROVIDERS: ATTEND Anesthesiology Pain Medicine
DX: M51.16 Intervertebral disc disorders with radiculopathy, lumbar region (principal); M48.061 Spinal stenosis, lumbar region without neurogenic claudication; M47.26 Other spondylosis with radiculopathy, lumbar region; M47.27 Other spondylosis with radiculopathy, lumbosacral region; G89.29 Other chronic pain; I10 Essential (primary) hypertension; Z98.890 Other specified postprocedural states; Z79.899 Other long term (current) drug therapy; Z87.891 Personal history of nicotine dependence

== ENCOUNTER → 2021-07-26 | Outpatient (CLI) | payer BC ==
[~2021-07-26] VITALS: Ht 177.8 cm; Wt 111.0 kg
[~2021-07-26] MED LIST changes: +NEURONTIN300 MG PO
[2021-07-26 10:30] VITALS: BP 141/72
--- NOTE | 2021-07-26 10:40 | NUR ---
Pain Clinic Assessment: 1. History of Osteoarthritis: BACK History of Rheumatoid Arthritis: Not Applicable 2. Height: 5 ft. 10 in. 177.8 cm. Weight: 244.6 lb. oz. 110.950 kg. Patient's BMI: 35.1 3. Vital Signs: BP: 141/72 Pulse: 72 Resp: 18 Temp: 02 Sat: 97 ECG Mon: 4. Pain Intensity: 8 5. Fall Risk: Dizziness: N Needs help standing or walking: N Fallen in the last 3 months: N Fall risk comments: 6. Patient on Blood Thinner: XERALTO 7. History of Hypertension: Y 8. Opioid Therapy greater than 6 weeks: N Opiate Contract Signed: 9. Risk Assessment Tool Provided: MOD 10. Functional Assessment Tool: 11. Recreational Drug Use: Never Drug Type: Tobacco Use: Former Smoker Tobacco Type: Amount or Packs/day: How Many Years: Alcohol Use: Yes Frequency: Special Occasions Quant: 5-6
--- NOTE | 2021-07-27 10:10 | HPC ---
[facility] [place] [address] PAIN MANAGEMENT CONSULTATION Name: RAN GLOVER Room #: REG QUAN RomeoTorsten#: [id number] Admission: 07/26/21 Attend Phys: Fahad Salazar DO Discharge: Date of : 49 Report #: [id number] THIS REPORT FOR: cc: Elizabeth Amezcua MD, Nora P. MD Johnson, James E. DO ~ cc: YUMIKO Encinas DATE OF SERVICE: 07/26/2021 CHIEF COMPLAINT: Low back pain, bilateral lower extremity pain with paresthesias. HISTORY OF PRESENT ILLNESS: As you know, the patient is a very pleasant 76-year-old male referred to our service for chronic axial back pain, lower extremity pain with paresthesias. He has seen Pain Management in the past, underwent epidural injections with benefit. We saw the patient in consultation per the request of his nurse practitioner on 04/20/2021 as a new consultation. He was diagnosed with lumbar radiculopathy. He returned on the for an epidural injection under fluoroscopic guidance as we had to obtain authorization. The patient underwent a second in the series of lumbar epidural injections on 05/24/2021 for which he reports improvement in symptoms of greater than 50%. He has been doing well until just recently where he has had a slow and progressive return of symptoms. He has discontinued his anticoagulant in preparation for an epidural injection. He is placing pain today at a level of 8/10. He returns today in followup visit requesting a lumbar epidural injection under fluoroscopic guidance. ALLERGIES: No known drug allergies. CURRENT MEDICATIONS: See chart. SOCIAL HISTORY: The patient denies current tobacco use. He is a reformed smoker with [id number] history of smoking. He denies IV or illicit drug use. Admits to 2 alcohol beverages per day. He is unaccompanied today. IMAGING: No new imaging available. PQRS: The patient has known arthritic changes of lumbar spine, bilateral hips and knees. No rheumatoid arthritis. Pain intensity today at a level of up to 7/10. He is not a fall risk, has not had a fall in last 3 months. He is on blood thinner in the form of Xarelto, but discontinued the medication days ago in preparation for a possible injection today. He is treated for hypertension. He is on no opioids, but has a moderate opioid addiction potential based on our assessment tool. Pain impact remains elevated 30/70, moderate interference of daily activities secondary to pain. [facility] [address] [place] [address] PAIN MANAGEMENT CONSULTATION Name: RAN GLOVER [facility] [id number] Admission: 07/26/21 Attend Phys: Fahad Salazar DO Discharge: Date of : 49 Report #: [id number] PHYSICAL EXAMINATION: GENERAL: Well-developed, well-nourished, well-hydrated 76-year-old male appearing stated age, pain is rated upto 7/10. HEENT: Normocephalic, atraumatic. Pupils equal, round and responsive. He is wearing a mask in compliance with COVID-19 regulations. EXTREMITIES: Show no clubbing, no cyanosis, no edema. MUSCULOSKELETAL: Muscle bulk and tone remains equal and symmetrical in lower extremities. Seated straight leg raising negative. Supine straight leg raising is positive. Fabere's test is negative. Modified Gaenslen's positive for axial low back pain. Ankle clonus negative. Babinski's is negative. Gait does show as a slightly antalgic. He appears to be favoring his right lower extremity. Lumbar provocation testing including extension, rotation, lateral flexion all intensify axial back pain. ASSESSMENT: 1. Symptomatic lumbar radiculopathy. 2. Severe central canal stenosis of lumbar spine. 3. 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 4. Severe facet arthropathy of lumbar spine. 5. Displacement of lumbar intervertebral disk with radiculopathy. 6. Lumbosacral spondylosis with radiculopathy. 7. Spondylolisthesis of L4 and L5. 8. Lumbar degeneration. PLAN: 1. The patient returns today in followup visit requesting a lumbar epidural injection under fluoroscopic guidance. He had noted excellent benefit with previous injections, but unfortunately his symptoms have reoccurred. He has suffered no new injury or trauma. He returns today to begin the authorization process as his [employer] payer will not approve an epidural injection without clinical documentation. The patient has discontinued his Xarelto, but even with the patient off this medication, we cannot obtain approval on the injection until his new insurance has an opportunity to review the case. We will begin the process of authorization immediately and have the patient return once that has been completed. I am hopeful this authorization will take minimal amount of time, we will see him back as quickly as possible. 2. The patient will be started on gabapentin 300 mg dose. He will begin 1 tab p.o. at bedtime for 2 nights, then 2 tabs p.o. at bedtime for 2 nights, then 3 tabs p.o. at bedtime for 2 nights. If no improvement in symptoms, no side effects of sleepiness, disorientation, confusion, mental slowing, then increase to 1 tab in the morning and 3 tabs at night, continuing the titration until reaching 3 tabs in the morning and 3 tabs at night. The patient was given a prescription of #180 of the 300 mg Neurontin capsule sent to his local pharmacy. The patient was advised anytime during the titration, he notes improvement in symptoms, stabilize at that dose, no further escalation. 3. We will see the patient back in followup visit once we have achieved [facility] [address] [place] [address] PAIN MANAGEMENT CONSULTATION Name: RAN GLOVER Room #: REG QUAN Silva#: [id number] Admission: 07/26/21 Attend Phys: Fahad Salazar DO Discharge: Date of : 49 Report #: [id number] authorization to undergo lumbar epidural injection under fluoroscopic guidance to address lumbar radiculopathy secondary to severe central canal and lateral recess stenosis. <ELECTRONICALLY SIGNED> By: Fahad Salazar DO 07/27/21 1010 1133 02 Fahad Salazar DO /nt
== END ==
LOC: PAIN 06:52
PROVIDERS: ATTEND Anesthesiology Pain Medicine
DX: M47.27 Other spondylosis with radiculopathy, lumbosacral region (principal); M48.061 Spinal stenosis, lumbar region without neurogenic claudication; M51.16 Intervertebral disc disorders with radiculopathy, lumbar region